=== PATIENT | female | born 1985 | race Caucasian/White ===

== ENCOUNTER 2016-02-25 13:10 | Emergency (ER) | payer SELFPAY ==
[2016-02-25 13:32] VITALS: RESP 18; TEMP 98.5
[2016-02-25 15:06] VITALS: O2SAT 100
[2016-02-25 15:08] VITALS: BP 103/44; PULSE 60
== END 2016-02-25 15:04 | disposition home or self-care (01) | DRG 914 ==
LOC: ED 13:10
DX: S69.91XA Unspecified injury of right wrist, hand and finger(s), initial encounter (principal); X50.9XXA Other and unspecified overexertion or strenuous movements or postures, initial encounter; Y93.11 Activity, swimming
CPT/HCPCS: 73130; 99283